=== PATIENT | female | born 1970 | race Caucasian/White ===

== ENCOUNTER 2016-11-10 05:59 | Emergency (ER) | payer OTHER ==
[~2016-11-10] VITALS: Ht 167.6 cm; Wt 99.8 kg
[2016-11-10 06:16] VITALS: BP 157/91
[2016-11-10] MEDS ORDERED: KETOROLAC 60 MG/2 ML INJ. IM ONE (06:30)
--- NOTE | 2016-11-10 07:14 | RAD ---
Sacrococcygeal spine, 3 views, 11/10/2016: History: Fall, pain No fracture is identified. The presacral soft tissues are unremarkable. There are mild degenerative changes in the lower lumbar spine. IMPRESSION: No acute bony abnormality is detected.
[2016-11-10] MEDS ORDERED: Lidoderm 5% patch TOP (07:25)
[2016-11-10] MEDS ORDERED: CYCL10TA2 PO (07:25)
[2016-11-10] MEDS ORDERED: HYDR-971 PO (07:25)
[2016-11-10] MEDS ORDERED: LIDOCAINE (700MG/PATCH) PATCH. TD ONE (07:30)
[2016-11-10] MEDS ORDERED: CYCLOBENZAPRINE 10 MG TABLET. PO ONE (07:30)
[2016-11-10] MEDS ORDERED: MORPHINE SULFATE 4 MG/ML DISP.SYRIN. IM ONE (07:30)
[2016-11-10] MEDS ORDERED: HYDROcodone/APAP 5/325MG 1 TAB TABLET PO ONE (07:30)
--- NOTE | 2016-11-10 07:33 | PHYS DOC ---
Past Medical History Past Medical History: Depression, Hypothyroid Past Surgical History: Cholecystectomy, , Hysterectomy Alcohol Use: Rarely Drug Use: None Adult General Chief Complaint Chief Complaint: LOWER BACK PAIN OR INJURY HPI HPI Patient is a 46 year old female who presents with low back pain. Patient was sitting in a chair at work when the chair slipped out from under her and she landed on her left lower back. It occurred overnight and the pain increased as the patient attempted to move around. Patient's localized over the SI joint of the left low back, no radiation of pain reported, no reports of saddle sensory change, bowel or bladder incontinence. Patient had lumbar spine surgery but she is not hurting in her mid lower back . 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 Review of Systems Review of Systems Constitutional: Denies fever or chills [] Eyes: Denies change in visual acuity, redness, or eye pain [] HENT: Denies nasal congestion or sore throat [] Respiratory: Denies cough or shortness of breath [] Cardiovascular: No additional information not addressed in HPI [] GI: Denies abdominal pain, nausea, vomiting, bloody stools or diarrhea [] : Denies dysuria or hematuria [] Musculoskeletal: per history of present illness Integument: Denies rash or skin lesions [] Neurologic: Denies headache, focal weakness or sensory changes [] Current Medications Current Medications Current Medications Medications (Trade) Dose Ordered Sig/Maikol Start Time Stop Time Status Last Admin Dose Admin Acetaminophen/ Hydrocodone Bitart (Lortab 5/325) 1 tab 1X ONCE 11/10/16 07:30 11/10/16 07:30 DC Cyclobenzaprine HCl (Flexeril) 10 mg 1X ONCE 11/10/16 07:30 11/10/16 07:31 11/10/16 07:19 10 MG Ketorolac Tromethamine (Toradol Im) 60 mg 1X ONCE 11/10/16 06:30 11/10/16 06:31 DC 11/10/16 06:31 60 MG Lidocaine (Lidoderm) 1 patch 1X ONCE 11/10/16 07:30 11/10/16 07:31 Morphine Sulfate 4 mg 1X ONCE 11/10/16 07:30 11/10/16 07:31 Allergies Allergies Allergies Coded Allergies Type Severity Reaction Last Updated Verified Iodinated Contrast- Oral and IV Dye Allergy Intermediate 11/10/16 Yes banana Allergy Intermediate 11/10/16 Yes latex Allergy Intermediate 11/10/16 Yes pregabalin Allergy Intermediate rash & hives 11/10/16 Yes Physical Exam Physical Exam Constitutional: Well developed, well nourished, appears uncomfortable, once to limit standing up straight ,non-toxic appearance. [] HENT: Normocephalic, atraumatic, bilateral external ears normal, oropharynx moist, no oral exudates, nose normal. [] Eyes: PERRLA, EOMI, conjunctiva normal, no discharge. [] Neck: Normal range of motion, no tenderness, supple, no stridor. [] Cardiovascular:Heart rate regular rhythm, no murmur [] Lungs & Thorax: Bilateral breath sounds clear to auscultation [] Abdomen:soft, no tenderness, no masses, no pulsatile masses. [] Skin: Warm, dry, no erythema, no rash. [] Back: No midline tenderness, tenderness to palpation of the left SI joint, no external signs of trauma Extremities: No tenderness, no cyanosis, no clubbing, ROM intact, no edema. [] Neurologic: Alert and oriented X 3, normal motor function, normal sensory function, no focal deficits noted. [] Psychologic: Affect normal, judgement normal, mood normal. [] Current Patient Data Vital Signs Vital Signs Date Time Temp Pulse Resp B/P (MAP) Pulse Ox O2 Delivery O2 Flow Rate FiO2 11/10/16 07:18 16 11/10/16 06:16 97.8 78 96 Room Air 97.8 EKG EKG [] Radiology/Procedures Radiology/Procedures Sacrococcygeal spine, 3 views, 11/10/2016: History: Fall, pain No fracture is identified. The presacral soft tissues are unremarkable. There are mild degenerative changes in the lower lumbar spine. IMPRESSION: No acute bony abnormality is detected. [] Course & Med Decision Making Course & Med Decision Making Pertinent Labs and Imaging studies reviewed. (See chart for details) Patient initially wanted to drive home, given IM Toradol without any relief of symptoms. X-ray did not show an acute fracture. Patient received Flexeril and IM morphine for pain as well as a Lidoderm patch. She contacted her who came to the hospital to pick her up. Recommended that she continue ice over the area, Lidoderm patch prescription as well as few hydrocodone and Flexeril prescription given. Patient will take her home ibuprofen for pain and rest. 4 day work note given. Patient also instructed her blood pressure lightly elevated and needs to be followed up by primary care physician. Roberta Disclaimer Roberta Disclaimer This electronic medical record was generated, in whole or in part, using a voice recognition dictation system. Departure Departure Impression: Primary Impression: Low back pain Disposition: HOME, SELF-CARE Condition: STABLE Patient Instructions: Form - Excuse from Work, School, or Physical Activity, Back Pain, Adult, [id number] Scripts [Lidoderm 5% patch] No Conflict Check 1 PATCH TOP Q12HR Y for PAIN, #5 apply to affected area for 12 hours, then remove for 12 hours. Prov: GARETH AGUAYO MD 11/10/16 Hydrocodone/Apap 5-325 (NORCO 5-325 TABLET) 1 Each Tablet 1-2 EACH PO PRN Q6HRS Y for breakthrough pain, #8 as needed for pain Prov: GARETH AGUAYO MD 11/10/16 Cyclobenzaprine Hcl (CYCLOBENZAPRINE HCL) 10 Mg Tablet 1 TAB PO TID Y for MUSCLE SPASMS, #20 TAB Prov: GARETH AGUAYO MD 11/10/16 GARETH AGUAYO MD Nov 10, 2016 07:33
== END 2016-11-10 08:19 | disposition home or self-care (01) ==
LOC: ER 05:59
DX: M54.5 Low back pain (principal); E03.9 Hypothyroidism, unspecified; Z91.041 Radiographic dye allergy status; Z91.040 Latex allergy status; Z88.8 Allergy status to other drugs, medicaments and biological substances; Z91.018 Allergy to other foods; W22.09XA Striking against other stationary object, initial encounter; Y93.89 Activity, other specified; Y92.89 Other specified places as the place of occurrence of the external cause; Y99.8 Other external cause status
CPT/HCPCS: 72220; 96372; 99284; J1885; J2270